=== PATIENT | female | born 1945 | race Caucasian/White ===

== ENCOUNTER → 2020-01-31 12:07 | Outpatient (CLI) | payer MEDICARE, BC ==
[2020-01-31 12:22] LABS: HEMATOCRIT 29.9 % (36.0-48.0); MCH 25.7 pg (26.0-34.0); MCHC 30.1 g/dL (31.0-37.0); MCV 85.4 fL (80.0-100.0); MEAN PLATELET VOLUME 9.1 fL (7.4-10.4); PLATELET COUNT 260 10x3/uL (130-400); RDW 17.5 % (11.5-14.5); WBC 7.3 10x3/uL (4.8-10.8)
[2020-01-31 12:40] LABS: IMMATURE GRANULOCYTES 0.7 % (0-5)
[2020-01-31 15:01] LABS: LYMPHOCYTES 40 % (15-50); NEUTROPHILS 57 % (40-80)
[2020-01-31 15:02] LABS: EOSINOPHILS 3 % (0-7); PLATELET ESTIMATE NORMAL
[2020-01-31 15:10] LABS: BASOPHILS 0 % (0-2); MONOCYTES 0 % (2-11)
== END | disposition home or self-care (01) ==
LOC: D.LABREF 12:07
PROVIDERS: ATTEND Legal Medicine
DX: C79.51 Secondary malignant neoplasm of bone (principal); D64.81 Anemia due to antineoplastic chemotherapy; E78.00 Pure hypercholesterolemia, unspecified